=== PATIENT | female | born 1980 | race Caucasian/White ===

== ENCOUNTER 2020-08-01 08:11 | Emergency (ER) | payer OTHER ==
[2020-08-01] MEDS ORDERED: Ketorolac Tromethamine 30 MG/ML VIAL ONE (09:06)
== END 2020-08-01 09:33 | disposition home or self-care (01) ==
LOC: ERS 08:11
DX: M62.838 Other muscle spasm (principal); G62.9 Polyneuropathy, unspecified; E78.1 Pure hyperglyceridemia; E78.5 Hyperlipidemia, unspecified; F17.210 Nicotine dependence, cigarettes, uncomplicated
CPT/HCPCS: 96372; 99283; J1885